=== PATIENT | female | born 1980 | race Asian ===

== ENCOUNTER 2020-07-01 05:37 | Inpatient (IN) ==
[2020-07-01] MEDS ORDERED: CeFAZolin 2,000 MG/50 ML BAG IVPB ONE (06:29)
[2020-07-01] MEDS ORDERED: Famotidine 20 MG/2 ML VIAL IVP ONE (06:29)
[2020-07-01] MEDS ORDERED: Metoclopramide 10 MG/2 ML VIAL IVP ONE (06:29)
[2020-07-01] MEDS ORDERED: Ringers Solution, Lactated 1,000 ML IVC ONE (06:29)
[2020-07-01] MEDS ORDERED: Naloxone 0.4 MG/ML INJ IVP PRN (06:31)
[2020-07-01 06:59] LABS: Basophils % 0.5 %; Eosinophils # 0.1 K/mcL (0.0-0.6); Eosinophils % 1.7 %; Hematocrit 35.6 % (35.3-44.9); Hemoglobin 11.6 g/dL (11.5-15.4); Immature Granulocytes % 0.4 % (0-4); Lymphocytes # 1.8 K/mcL (0.6-4.6); Lymphocytes % 22.5 %; Mean Corpuscular HGB Conc 32.6 g/dL (31.6-35.5); Mean Corpuscular Hemoglobin 31.6 pg (28.0-33.3); Mean Platelet Volume 10.3 fL (9.4-12.4); Monocytes # 0.5 K/mcL (0.0-1.3); Monocytes % 5.8 %; Neutrophils # 5.6 K/mcL (1.6-8.9); Platelet Count 273 K/mcL (140-400); Red Blood Count 3.67 M/mcL (3.82-4.97); Red Cell Distribution Width 14.4 % (11.5-14.5); Segmented Neutrophils % 69.1 %; White Blood Count 8.1 K/mcL (4.3-11.1)
[2020-07-01] MEDS ORDERED: Ringers Solution, Lactated 1,000 ML ONE ×2 (07:24→07:33)
[2020-07-01] MEDS ORDERED: Oxytocin 20 units/ LR 1000 mL 20 UNIT/1,000 ML BAG IVC ONE (07:24)
[2020-07-01] MEDS ORDERED: *HR* Phenylephrine 10 MG/ML VIAL ONE (07:28)
[2020-07-01] MEDS ORDERED: *HR* FentaNYL (PF) 100 MCG/2 ML VIAL ONE (07:34)
[2020-07-01] MEDS ORDERED: *HR* Midazolam HCl 2 MG/2 ML VIAL ONE (07:34)
[2020-07-01] MEDS ORDERED: *HR* Morphine Sulfate/PF 10 MG/10 ML AMPUL ONE (07:35)
[2020-07-01] MEDS ORDERED: EPHEDrine 50 MG/ML VIAL ONE (07:36)
[2020-07-01] MEDS ORDERED: Ketorolac 30 MG/ML VIAL ONE (07:37)
[2020-07-01] MEDS ORDERED: Ondansetron 4 MG/2 ML VIAL ONE (07:37)
[2020-07-01] MEDS ORDERED: Dexamethasone 4 MG/ML VIAL ONE (07:37)
[2020-07-01] MEDS ORDERED: *HR* Oxytocin 10 UNIT/ML VIAL IM ONE (07:38)
[2020-07-01] MEDS ORDERED: Acetaminophen IV 1,000 MG/100 ML BAG IVPB ONE (08:27)
[2020-07-01 10:58] LABS: Amphetamine Screen,Urine Negative ng/mL (Cutoff=1000); Barbiturate Screen,Urine Negative ng/mL (Cutoff=200); Benzodiazepines Screen,Urine Negative ng/mL (Cutoff=200); Cannabinoid Screen,Urine Negative ng/mL (Cutoff = 50); Cocaine Screen,Urine Negative ng/mL (Cutoff= 300); Opiate Screen,Urine Negative ng/mL (Cutoff=300); Phencyclidine Screen,Urine Negative ng/mL (Cutoff=25)
[2020-07-01] MEDS ORDERED: Ondansetron 4 MG/2 ML VIAL IVP PRN (12:20)
[2020-07-01] MEDS ORDERED: *HR* OxyCODONE Immed Rel 5 MG TABLET PO PRN (12:20)
[2020-07-01] MEDS ORDERED: Ringers Solution, Lactated 1,000 ML IVC SCH (12:20)
[2020-07-01] MEDS ORDERED: Oxytocin 20 units/ LR 1000 mL 20 UNIT/1,000 ML BAG IVC SCH (12:20)
[2020-07-01] MEDS ORDERED: Metoclopramide 10 MG/2 ML VIAL IVP PRN (12:20)
[2020-07-01] MEDS ORDERED: Simethicone 80 MG TAB.CHEW PO PRN (12:20)
[2020-07-01] MEDS ORDERED: Rho Immune Globulin 1,500 UNIT SYRINGE IM ONE (12:20)
[2020-07-01] MEDS ORDERED: Sennosides 8.6 MG TABLET PO PRN (12:20)
[2020-07-01] MEDS: Prenatal Vit/FA 1 EACH TABLET PO SCH (12:57)
[2020-07-01] MEDS: Ibuprofen 600 MG TABLET PO SCH ×3 (13:02→23:45)
[2020-07-01] MEDS: Acetaminophen 325 MG TABLET PO SCH ×3 (13:03→23:45)
[2020-07-01] MEDS: Oxytocin 20 units/ LR 1000 mL 20 UNIT/1,000 ML BAG IVC SCH ×2 (14:35→20:07)
[2020-07-02] MEDS: Acetaminophen 325 MG TABLET PO SCH ×2 (05:36→18:29)
[2020-07-02] MEDS: Ibuprofen 600 MG TABLET PO SCH ×2 (05:37→18:28)
[2020-07-02 05:46] LABS: Basophils % 0.3 %; Eosinophils # 0.1 K/mcL (0.0-0.6); Eosinophils % 0.8 %; Hematocrit 29.4 % (35.3-44.9); Immature Granulocytes % 0.5 % (0-4); Lymphocytes # 1.9 K/mcL (0.6-4.6); Lymphocytes % 18.4 %; Mean Corpuscular Hemoglobin 31.8 pg (28.0-33.3); Mean Corpuscular Volume 96.4 fL (83.0-100.0); Mean Platelet Volume 10.1 fL (9.4-12.4); Monocytes # 0.5 K/mcL (0.0-1.3); Monocytes % 4.7 %; Neutrophils # 7.8 K/mcL (1.6-8.9); Platelet Count 198 K/mcL (140-400); Red Blood Count 3.05 M/mcL (3.82-4.97); Red Cell Distribution Width 14.3 % (11.5-14.5); Segmented Neutrophils % 75.3 %; White Blood Count 10.4 K/mcL (4.3-11.1)
[2020-07-02 05:48] LABS: Hemoglobin 9.7 g/dL (11.5-15.4)
[2020-07-02 07:53] VITALS: BP 109/68
[2020-07-02] MEDS: Prenatal Vit/FA 1 EACH TABLET PO SCH (08:11)
== END 2020-07-02 20:04 | disposition home or self-care (01) | DRG 788 ==
LOC: 1NENULAB 05:37 → 1NENUOBS 11:26
PROVIDERS: ADMIT Student in an Organized Health Care Education/Training Program; ATTEND Student in an Organized Health Care Education/Training Program